=== PATIENT | female | born 1995 | race American Indian/Alaskan Native ===

== ENCOUNTER 2018-01-19 19:38 | Emergency (ER) | payer BC ==
[2018-01-19 19:43] VITALS: BP 125/67
[2018-01-19] MEDS ORDERED: MOTRIN PO ONE (21:44)
[2018-01-19] MEDS ORDERED: AUGMENTIN 875 MG PO ONE (21:44)
--- NOTE | 2018-01-19 21:44 | Emergency Department Report ---
Abscess Boil HPI - HPI Chief Complaint: Skin/Abscess/Foreign Body Stated Complaint: REQUESTING REMOVAL OF LIP RING Time Seen by Provider: 01/19/18 21:40 Duration: >1 Week (patient with lip pierced then 2 years.) Location: Other (lip) Severity: None History: Yes Purulent Drainage (reports that she has some drainage at times), Yes Foreign Body (Carroll), Yes Previous History (2 years), No Fever, No Pain ( no pain she's requested and the lip piercing be removed), No Numbness, No Insect Bite HPI: Patient reports that she has piercing to her upper lip stud underneath the skin. She says she needs help to remove this because it causes her pain at time. No pain at present. She states she was seen at [facility] and they told her that she needs to return after completing antibiotic. She says she completed one week ago but cannot remember the name of the antibiotic was. Denies any nausea or vomiting. Denies any swelling to lips or tongue. Denies any difficulty breathing. Denies any redness or drainage at the site of present she said it got better after antibiotic but she just wants it out. He sustained there for 2 years. She reports that her tetanus vaccine is up-to- date. Home Medications: Previous Rx's Medication Instructions Recorded Last Taken Type Cephalexin [Keflex] 500 mg PO Q8HR 7 Days #21 cap 01/19/18 Unknown Rx Ibuprofen [Motrin] 600 mg PO Q8H PRN #12 tablet 01/19/18 Unknown Rx Allergies/Adverse Reactions: Allergies Allergy/AdvReac Type Severity Reaction Status Date / Time No Known Allergies Allergy Unverified 01/19/18 19:46 ED Review of Systems ROS: Stated complaint: REQUESTING REMOVAL OF LIP RING Other details as noted in HPI Constitutional: denies: chills, fever Eyes: denies: eye pain ENT: other (requested a lip piercing to be removed). denies: ear pain, throat pain, dental pain Respiratory: denies: cough, shortness of breath, wheezing Cardiovascular: denies: chest pain, palpitations Gastrointestinal: denies: nausea, vomiting Musculoskeletal: denies: back pain, joint swelling, arthralgia Skin: other (Kandice lip piercing to be removed). denies: rash, lesions Neurological: denies: headache, weakness, paresthesias Hematological/Lymphatic: denies: easy bleeding, easy bruising ED Past Medical Hx - Past Medical History Previous Medical History?: No - Surgical History Past Surgical History?: No - Family History Family history: diabetes - Social History Smoking Status: Current Every Day Smoker Substance Use Type: None - Medications Home Medications: Home Medications Medication Instructions Recorded Confirmed Last Taken Type Cephalexin [Keflex] 500 mg PO Q8HR 7 Days #21 cap 01/19/18 Unknown Rx Ibuprofen [Motrin] 600 mg PO Q8H PRN #12 tablet 01/19/18 Unknown Rx ED Abscess Boil Physical Exam - Exam General: Vital signs noted. No distress. Alert and acting appropriately. His is a 22-year-old female well-nourished well-developed in no acute distress. Front/Back of Body, Lg (Color): 1 - Patient with lip Carroll to upper lip between for beta border and nasal area. Nontender to palpate in no signs of infection. She reports pus coming from side at times and was recently an antibiotic. Tetanus vaccine is up-to- date. Tolerating noted in upper lip at 5 mm and base under his skin felt to be 1 cm. Exam: Yes Tenderness (around upper lip piercing), Yes Surrounding Cellulites/ Erythema (around upper lip piercing, mild), Yes Normal Neurologic Exam, Yes Normal Circulation, No Fluctuance, No Lymphangitis, No Crepitation, No Heart Murmur Exam: Mouth: pt with piercing yo upper lip. mild erythema. No induration. Mild tenderness to palpate. No drainage noted at site. I & D Note - I & D Note I & D Note: Procedure: Patient will be referred to plastics since she's had this in for 2 years and its close to her vermilion border and patient agrees that she needs to follow-up with plastics. She has the means to do so and I will give her referral to plastics facial who is plastics facial. ED Course Vital Signs 01/19/18 01/19/18 19:37 19:43 Temperature 98.0 F 98 F Pulse Rate 91 H 81 Respiratory 18 18 Rate Blood Pressure 125/67 125/67 O2 Sat by Pulse 100 100 Oximetry - Reevaluation(s) Reevaluation #1: 01/19/18 22:18 given Augmentin and Motrin in the emergency room. Critical care attestation.: If time is entered above; I have spent that time in minutes in the direct care of this critically ill patient, excluding procedure time. ED Medical Decision Making - Medical Decision Making ED course: 22-year-old female here for removal of upper lip piercing. Patient mild cellulitis around lip she says she's had this in for 2 years and she wants it out. Externally noted 5 mm round knob and felt internally square object. Examination saw patient and it was decided the patient will be placed on antibiotic and referred to plastic surgeon/facial removal of Carroll. I discussed the diagnosis and treatment dependent patient and she voiced understanding. A/P 1: Count for removal of Carroll-a short mild cellulitis and referred to Dr. Marte plastic facials 2: Mild cellulitis upper lip: Patient given Augmentin 875 mg and Motrin 800 mg emergency room. Patient given prescription for Keflex and ibuprofen. She is educated on medication, treatment plan, diagnosis and need to follow-up and she was understanding Referral to facial plastic surgeon Dr. Marte and primary care physician Discharged home in stable condition, vital signs are stable to follow-up with her primary care and also facial plastic surgeon. Discharged from ED in stable condition. ED Disposition Clinical Impression: Cellulitis of lip Superficial foreign body lip without major open wnd without infection Qualifiers: Encounter type: initial encounter Qualified Code(s): S00.551A - Superficial foreign body of lip, initial encounter Disposition: DC- TO HOME OR SELFCARE Is pt being admited?: No Does the pt Need Aspirin: No Condition: Stable Instructions: Cellulitis (ED) Additional Instructions: keep affected area clean and dry Take Antibiotic as prescribed Follow instruction on discharge instruction paperwork to follow up with plastic surgeon the specialize in facial procedure. Prescriptions: Cephalexin [Keflex] 500 mg PO Q8HR 7 Days #21 cap Ibuprofen [Motrin] 600 mg PO Q8H PRN #12 tablet PRN Reason: Pain Referrals: PRIMARY CAREMD [Primary Care Provider] - 2-3 Days MELVA MARTE MD [Staff Physician] - 01/21/18 Forms: Work/School Release Form(ED)
== END 2018-01-19 22:33 | disposition home or self-care (01) ==
LOC: ED 19:38
DX: K13.0 Diseases of lips (principal); F17.200 Nicotine dependence, unspecified, uncomplicated

== ENCOUNTER 2020-10-28 22:13 | Emergency (ER) | payer SELFPAY ==
[2020-10-28 23:10] VITALS: BP 116/72
[2020-10-28] MEDS ORDERED: ACETAMINOPHEN 500 MG TAB PO ONE (23:17)
[2020-10-28] MEDS ORDERED: IBUPROFEN 600 MG TAB PO ONE (23:17)
--- NOTE | 2020-10-28 23:55 | XRay Report ---
. XR knee 3V RT INDICATION / CLINICAL INFORMATION: Right knee injury. COMPARISON: None available. FINDINGS: No acute fracture. Normal alignment. Joint spaces are preserved. No destructive osseous lesion or s uspicious periosteal reaction. Impression: 1.No acute fracture. Signer Name: Eze Ortiz MD Signed: 10/28/2020 11:51 PM Workstation Name: [id number]
--- NOTE | 2020-10-29 00:16 | Cat Scan Report ---
. CT facial bones wo con, CT head/brain wo con INDICATION: Head injury. TECHNIQUE: CT head and CT face. All CT scans at this location are performed using CT dose reduction f or ALARA by means of automated exposure control. COMPARISON: None. FINDINGS: Head: Intracranial: Hodges-white matter differentiation is maintained. No intracranial hemorrhage. No extra a xial collection.. No hydrocephalus. No herniation. Calvarium: No acute fracture. Face: Facial bones: Small right periorbital hematoma. Facial bones are intact without fracture. Mandibular condyles are well-seated within the glenoid fossa of the temporal mandibular joint. Sinuses: Paranasal sinuses and mastoid air cells are essentially clear. Orbits: Globes are intact. Additional findings:No other significant abnormality. IMPRESSION: 1. No acute intracranial abnormality. 2. Small right periorbital hematoma. No facial bone fracture. Signer Name: Eze Ortiz MD Signed: 10/29/2020 12:12 AM Workstation Name: [id number]
[2020-10-29] MEDS ORDERED: DIPHtheria,PERTUSSIS(ACELL),TETANUS VACCINE/PF 0.5 ML VIAL IM ONE (00:23)
--- NOTE | 2020-10-29 00:28 | Emergency Department Report ---
ED Fall HPI - General Chief Complaint: Wound/Laceration Stated Complaint: FACE LACERATION Source: patient Mode of arrival: Ambulatory - History of Present Illness Initial Comments: Patient is a 25-year-old -[place] female with no past medical history presents to the ED with complaint of acute onset persistent right knee pain with multiple abrasions, right periorbital swelling and hematoma with multiple abrasions and headache after she tripped and fell down at home about 6 days ago. Patient states that she was walking in the room when she accidentally tripped on a piece of furniture and fell down hitting her face against the floor and landing on her right knee. Patient states that she decided to stay at home and initially preferred to treat herself with tutj-rxa-mxrwrek medications but in the last 2 days the pain and the swelling have worsened. Patient states that she is not up-to-date with her vaccinations. Patient denies loss of consciousness, dizziness, syncope, alcohol intoxication, neck pain, chest pain, shortness of breath, back pain or hip pain, numbness and tingling or weakness of upper or lower extremities bilaterally. 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 denies: neck pain, numbness, weakness, chest paint, shortness of breath, abdominal pain, hematuria, vertigo - Related Data Previous Rx's Medication Instructions Recorded Last Taken Type Ibuprofen [Motrin] 600 mg PO Q8H PRN #12 tablet 01/19/18 Unknown Rx cephALEXin [Keflex] 500 mg PO Q8HR 7 Days #21 cap 01/19/18 Unknown Rx Bacitracin [Bacitracin Ophth] 1 applicatio OP TID #1 tube 10/29/20 Unknown Rx Ibuprofen [Motrin] 600 mg PO Q8H PRN #30 tablet 10/29/20 Unknown Rx cephALEXin [Keflex] 500 mg PO Q8HR #30 cap 10/29/20 Unknown Rx Allergies Allergy/AdvReac Type Severity Reaction Status Date / Time No Known Allergies Allergy Unverified 01/19/18 19:46 ED Review of Systems ROS: Stated complaint: FACE LACERATION Other details as noted in HPI Constitutional: denies: chills, fever Eyes: other (Painful right periorbital moderate hematoma with ulcerated abrasion wounds with purulent discharge.). denies: eye pain, eye discharge, vision change ENT: other (Painful right zygomatic area with mild swelling). denies: ear pain, throat pain Respiratory: denies: cough, shortness of breath, wheezing Cardiovascular: denies: chest pain, palpitations Endocrine: no symptoms reported Gastrointestinal: denies: abdominal pain, nausea, diarrhea Genitourinary: denies: urgency, dysuria, discharge Musculoskeletal: joint swelling, arthralgia (Right knee pain with mild swelling and multiple abrasion wounds). denies: back pain Skin: other (Multiple ulcerated abrasion wounds with purulent discharge). denies: rash, lesions Neurological: denies: headache, weakness, paresthesias Psychiatric: denies: anxiety, depression Hematological/Lymphatic: denies: easy bleeding, easy bruising ED Past Medical Hx - Past Medical History Previous Medical History?: No - Surgical History Past Surgical History?: No - Social History Smoking Status: Never Smoker Substance Use Type: None - Medications Home Medications: Home Medications Medication Instructions Recorded Confirmed Last Taken Type Ibuprofen [Motrin] 600 mg PO Q8H PRN #12 tablet 01/19/18 Unknown Rx cephALEXin [Keflex] 500 mg PO Q8HR 7 Days #21 cap 01/19/18 Unknown Rx Bacitracin [Bacitracin Ophth] 1 applicatio OP TID #1 tube 10/29/20 Unknown Rx Ibuprofen [Motrin] 600 mg PO Q8H PRN #30 tablet 10/29/20 Unknown Rx cephALEXin [Keflex] 500 mg PO Q8HR #30 cap 10/29/20 Unknown Rx ED Physical Exam - General Limitations: No Limitations General appearance: alert, in no apparent distress - Head Head exam: Present: other (Right periorbital hematoma with localized tenderness due to multiple abrasion wounds with purulent discharge) - Eye Eye exam: Present: normal appearance, PERRL, EOMI, periorbital swelling (Right periorbital swelling), periorbital tenderness (Palpable mild right periorbital tenderness due to ulcerated abrasion wound with purulent discharge) Pupils: Present: normal accommodation - ENT ENT exam: Present: normal exam, normal orophraynx, mucous membranes moist, TM's normal bilaterally, normal external ear exam, other (Palpable right zygomatic tenderness with mild swelling) - Neck Neck exam: Present: normal inspection, full ROM. Absent: tenderness - Respiratory Respiratory exam: Present: normal lung sounds bilaterally. Absent: respiratory distress, wheezes, rales, rhonchi, chest wall tenderness, accessory muscle use, decreased breath sounds, prolonged expiratory - Cardiovascular Cardiovascular Exam: Present: regular rate, normal rhythm, normal heart sounds. Absent: systolic murmur, diastolic murmur, rubs, gallop - GI/Abdominal GI/Abdominal exam: Present: soft, normal bowel sounds. Absent: distended, tenderness, guarding, hyperactive bowel sounds, hypoactive bowel sounds, organomegaly - Extremities Exam Extremities exam: Present: normal inspection, full ROM, tenderness (Palpable right knee tenderness with mild swelling due to mildly erythematous ulcerated abrasion wounds), normal capillary refill. Absent: pedal edema, joint swelling, calf tenderness - Back Exam Back exam: Present: normal inspection, full ROM. Absent: tenderness, CVA tenderness (R), CVA tenderness (L), paraspinal tenderness, vertebral tenderness - Neurological Exam Neurological exam: Present: alert, oriented X3, CN II-XII intact, normal gait, reflexes normal - Psychiatric Psychiatric exam: Present: normal affect, normal mood - Skin Skin exam: Present: warm, dry, intact, normal color. Absent: rash ED Course Vital Signs 10/28/20 10/28/20 10/28/20 23:03 23:57 23:58 Temperature 98.2 F Pulse Rate 80 Respiratory 18 16 16 Rate Blood Pressure 116/72 O2 Sat by Pulse 99 Oximetry ED Medical Decision Making - Radiology Data Radiology results: report reviewed, image reviewed [facility] [address] [place] [address] XRay Report Signed Patient: FLACO JONES MR#: [id number] : 1995 Acct:[id number] Age/Sex: 25 / F ADM Date: 10/28/20 Loc: ED Attending Dr: Ordering Physician: RANJAN ANDRADE Date of Service: 10/28/20 Procedure(s): XR knee 3V RT Accession Number(s): [id number] cc: RANJAN ANDRADE Fluoro Time In Minutes: . XR knee 3V RT INDICATION / CLINICAL INFORMATION: Right knee injury. COMPARISON: None available. FINDINGS: No acute fracture. Normal alignment. Joint spaces are preserved. No destructive osseous lesion or suspicious periosteal reaction. Impression: 1.No acute fracture. Signer Name: Eze Ortiz MD Signed: 10/28/2020 11:51 PM Workstation Name: [id number] Transcribed By: CS Dictated By: Eze Ortiz MD Electronically Authenticated By: Eze Ortiz MD Signed Date/Time: 10/28/202350 DD/ 50 TD/TT: [facility] [address] [place] [address] Cat Scan Report Signed Patient: FLACO JONES MR#: [id number] : 1995 Acct:[id number] Age/Sex: 25 / F ADM Date: 10/28/20 Loc: ED Attending Dr: Ordering Physician: RANJAN ANDRADE Date of Service: 10/28/20 Procedure(s): CT head/brain wo con Accession Number(s): [id number] cc: RANJAN ANDRADE . CT facial bones wo con, CT head/brain wo con INDICATION: Head injury. TECHNIQUE: CT head and CT face. All CT scans at this location are performed using CT dose reduction for ALARA by means of automated exposure control. COMPARISON: None. FINDINGS: Head: Intracranial: Hodges-white matter differentiation is maintained. No intracranial hemorrhage. No extra axial collection.. No hydrocephalus. No herniation. Calvarium: No acute fracture. Face: Facial bones: Small right periorbital hematoma. Facial bones are intact without fracture. Mandibular condyles are well-seated within the glenoid fossa of the temporal mandibular joint. Sinuses: Paranasal sinuses and mastoid air cells are essentially clear. Orbits: Globes are intact. Additional findings:No other significant abnormality. IMPRESSION: 1. No acute intracranial abnormality. 2. Small right periorbital hematoma. No facial bone fracture. Signer Name: Eze Ortiz MD Signed: 10/29/2020 12:12 AM Workstation Name: [id number] Transcribed By: CS Dictated By: Eze Ortiz MD Electronically Authenticated By: Eze Ortiz MD Signed Date/Time: 10/29/2011 DD/ TD/TT: [facility] [address] [place] [address] Cat Scan Report Signed Patient: FLACO JONES MR#: [id number] : 1995 Acct:[id number] Age/Sex: 25 / F ADM Date: 10/28/20 Loc: ED Attending Dr: Ordering Physician: RANJAN ANDRADE Date of Service: 10/28/20 Procedure(s): CT facial bones wo con Accession Number(s): [id number] cc: RANJAN ANDRADE . CT facial bones wo con, CT head/brain wo con INDICATION: Head injury. TECHNIQUE: CT head and CT face. All CT scans at this location are performed using CT dose reduction for ALARA by means of automated exposure control. COMPARISON: None. FINDINGS: Head: Intracranial: Hodges-white matter differentiation is maintained. No intracranial hemorrhage. No extra axial collection.. No hydrocephalus. No herniation. Calvarium: No acute fracture. Face: Facial bones: Small right periorbital hematoma. Facial bones are intact without fracture. Mandibular condyles are well-seated within the glenoid fossa of the temporal mandibular joint. Sinuses: Paranasal sinuses and mastoid air cells are essentially clear. Orbits: Globes are intact. Additional findings:No other significant abnormality. IMPRESSION: 1. No acute intracranial abnormality. 2. Small right periorbital hematoma. No facial bone fracture. Signer Name: Eze Ortiz MD Signed: 10/29/2020 12:12 AM Workstation Name: [id number] Transcribed By: CS Dictated By: Eze Ortiz MD Electronically Authenticated By: Eze Ortiz MD Signed Date/Time: 10/29/2011 DD/ TD/TT: Print Cancel Print - Medical Decision Making This is a 25-year-old -[place] female with no past medical history presents to the ED with complaint of acute onset persistent right knee pain with multiple abrasions, right periorbital swelling and hematoma with multiple abrasions and headache after she tripped and fell down at home about 6 days ago. Patient states that she was walking in the room when she accidentally tripped on a piece of furniture and fell down hitting her face against the floor and landing on her right knee. Patient states that she decided to stay at home and initially preferred to treat herself with [id number]-[id number] medications but in the last 2 days the pain and the swelling have worsened. Patient states that she is not up-to-date with her vaccinations. In the ED, patient is alert and oriented x 3 and is in no acute distress. Patient was treated for pain and also given booster tetanus vaccinations. The right knee x-ray shows no acute fractures or subluxations. The Head CT scan w/o contrast shows no acute intracranial abnormalities or hemorrhage. The facial CT scan w/o contrast shows no acute facial bone fractures or subluxations. On reevaluation, patient's pain is well controlled with medications, and advised follow-up with her primary care physician in 5 to 7 days for reevaluation. Patient was advised return to the ED immediately if symptoms get worse. - Differential Diagnosis Facial bone fracture; head injury; knee fracture; knee contusion Critical care attestation.: If time is entered above; I have spent that time in minutes in the direct care of this critically ill patient, excluding procedure time. ED Disposition Clinical Impression: Abrasions of multiple sites with infection Contusion of right knee and lower leg Qualifiers: Encounter type: initial encounter Qualified Code(s): S80.01XA - Contusion of right knee, initial encounter Contusion of scalp Qualifiers: Encounter type: initial encounter Qualified Code(s): S00.03XA - Contusion of scalp, initial encounter Disposition: TO HOME OR SELFCARE Is pt being admited?: No Does the pt Need Aspirin: No Condition: Stable Instructions: Facial or Scalp Contusion, Facial or Scalp Contusion, [id number] Additional Instructions: All imaging reports results were reviewed and are all nonactionable. Therefore take medication with food, drink plenty of fluids and follow-up with your primary care physician in 3 to 5 days for reevaluation. Return to the ED immediately if symptoms get worse. Prescriptions: Bacitracin [Bacitracin Ophth] 1 applicatio OP TID #1 tube cephALEXin [Keflex] 500 mg PO Q8HR #30 cap Ibuprofen [Motrin] 600 mg PO Q8H PRN #30 tablet PRN Reason: Pain Referrals: ASMITA RAMOS MD [Staff Physician] - 3-5 Days Time of Disposition: 00:33 Print Language: LEBANESE
== END 2020-10-29 01:15 | disposition home or self-care (01) ==
LOC: ED 22:13
DX: S80.01XA Contusion of right knee, initial encounter (principal); S00.03XA Contusion of scalp, initial encounter; S80.211A Abrasion, right knee, initial encounter; Z79.899 Other long term (current) drug therapy; W18.30XA Fall on same level, unspecified, initial encounter; Y93.89 Activity, other specified; Y92.89 Other specified places as the place of occurrence of the external cause; Y99.8 Other external cause status
CPT/HCPCS: 70450; 70486; 90471; 90715

== ENCOUNTER 2021-05-11 15:38 | Emergency (ER) | payer OTHER, BC ==
[2021-05-11] MEDS ORDERED: SODIUM CHLORIDE 0.9% 1000 ML 1,000 ML IV ONE (16:31)
[2021-05-11] MEDS ORDERED: ONDANSETRON 4 MG/2 ML INJ IV ONE ×2 (16:31→18:58)
[2021-05-11] MEDS ORDERED: fentaNYL 100 MCG/2 ML INJ IV ONE ×2 (16:31→18:58)
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
[2021-05-11 17:12] LABS: Blood Urea Nitrogen 16 mg/dL (7-17); Calcium 9.3 mg/dL (8.4-10.2); Hemolysis Index 100
[2021-05-11 17:26] LABS: Basophils # (Auto) 0.1 K/mm3 (0.0-0.1); Eosinophils % (Auto) 0.4 % (0.0-4.3); Hematocrit 38.4 % (30.3-42.9); Lymphocytes # (Auto) 1.3 K/mm3 (1.2-5.4); Lymphocytes % (Auto) 19.5 % (13.4-35.0); Mean Corpuscular HGB Conc 34 % (30-34); Mean Corpuscular Volume 87 fl (79-97); Monocytes # (Auto) 0.4 K/mm3 (0.0-0.8); Monocytes % (Auto) 5.7 % (0.0-7.3); Platelet Count 224 K/mm3 (140-440); Red Blood Count 4.39 M/mm3 (3.65-5.03); Red Cell Distribution Width 15.7 % (13.2-15.2)
[2021-05-11 17:27] LABS: BUN/Creatinine Ratio 27
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
[2021-05-11] MEDS ORDERED: CYCLOBENZAPRINE 10 MG TAB PO ONE (19:32)
[2021-05-11 20:07] VITALS: BP 139/84
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
--- NOTE | 2021-05-12 08:50 | Electrocardiograph Report ---
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
== END 2021-05-11 21:38 | disposition home or self-care (01) ==
LOC: ED 15:38
DX: M54.5 Low back pain (principal); M54.2 Cervicalgia; R51.9 Headache, unspecified; R10.9 Unspecified abdominal pain; Z72.89 Other problems related to lifestyle; V87.7XXA Person injured in collision between other specified motor vehicles (traffic), initial encounter; Y93.89 Activity, other specified; Y92.488 Other paved roadways as the place of occurrence of the external cause; Y99.8 Other external cause status
CPT/HCPCS: 36415; 70450; 71045; 72100; 72125; 73552; 73590; 73620; 74177; 80048; 84484; 84703; 85025; 93005; 96361; 96374; 96375; 99285; J2405; J3010; J7030; Q9967

== ENCOUNTER 2022-05-06 21:42 | Emergency (ER) | payer SELFPAY ==
[2022-05-06 21:50] VITALS: BP 127/96
== END 2022-05-06 22:00 | disposition left against medical advice (07) ==
LOC: ED 21:42
DX: M79.605 Pain in left leg (principal); Z53.21 Procedure and treatment not carried out due to patient leaving prior to being seen by health care provider; V87.7XXA Person injured in collision between other specified motor vehicles (traffic), initial encounter; Y93.89 Activity, other specified; Y92.488 Other paved roadways as the place of occurrence of the external cause; Y99.8 Other external cause status